=== PATIENT | male | born 1950 | race Asian ===

== ENCOUNTER 2022-08-24 12:51 | Outpatient (CLI) | payer OTHER | END 2022-08-24 23:59 | disposition home or self-care (01) | LOC: CARD DIAG 12:51 | PROVIDERS: ATTEND Chiropractor | DX: I34.81 Nonrheumatic mitral (valve) annulus calcification (principal); E03.9 Hypothyroidism, unspecified; I25.9 Chronic ischemic heart disease, unspecified; I25.10 Atherosclerotic heart disease of native coronary artery without angina pectoris | CPT/HCPCS: 36415; 84439; 84443; 84481; 93306 ==